=== PATIENT | male | born 1950 | race Caucasian/White ===

== ENCOUNTER → 2016-12-12 | Outpatient (CLI) | payer MEDICARE, BC, OTHER ==
--- NOTE | 2016-12-13 12:43 | SLEEPCENT ---
DATE OF PROCEDURE: 12/12/2016 REQUESTING PROVIDER: Kia Madrigal NP INTERPRETATION: Nocturnal polysomnography was performed due to concern for the obstructive sleep apnea syndrome. 7 hours and 58 minutes of data were reviewed. There were 383 minutes of sleep identified. Sleep latency was short at 4.5 minutes. Rapid eye movement (REM) latency was prolonged at 149 minutes. Sleep architecture was fairly good once established. There were three REM periods appreciated. Overall sleep efficiency was 81.3%. The patient's electrocardiogram (EKG) showed a sinus rhythm with an average heart rate of 50 beats per minute. Electroencephalogram (EEG) showed normal waveforms for awake and sleep. There were 151 respiratory events identified of 10 seconds in duration or greater for an apnea-hypopnea index of 23.7. The events were primarily obstructive, not exclusive to sleep stage nor body posture. Arousals from respiratory events occurred 8.6 times per hour. Oxygen desaturations were seen into the low 80s. The remaining measures of sleep physiology were reasonably normal. IMPRESSION: Moderate obstructive sleep apnea syndrome (G47.33). Apnea-hypopnea index of 23.7. RECOMMENDATIONS: The patient should be encouraged to return to the sleep disorder center for pressure therapy. In the interim, alcohol and sedative avoidance should be practiced and caution exercised during the operation of motor vehicles.
== END ==
LOC: M SLEEP 19:51
PROVIDERS: ATTEND Nurse Practitioner Adult Health
DX: G47.30 Sleep apnea, unspecified (principal); R40.0 Somnolence

== ENCOUNTER → 2017-01-12 | Outpatient (CLI) | payer MEDICARE, BC, OTHER ==
--- NOTE | 2017-01-17 11:56 | SLEEPCENT ---
DATE OF PROCEDURE: 01/12/2017 REQUESTING PROVIDER: Kia Madrigal NP INTERPRETATION: Nocturnal polysomnography was performed for the titration of pressure therapy in this patient with severe obstructive sleep apnea syndrome, apnea-hypopnea index of 23. For testing, the patient was fit with a [employer] Simplus full face mask of medium size, 4 cm of water pressure were applied to the circuit and the lights were extinguished. 8 hours and 6 minutes of data were reviewed. There were 315 minutes of sleep identified. Sleep latency was normal at 8 minutes. Rapid eye movement (REM) latency was delayed at 239 minutes. Sleep architecture improved with optimal pressure therapy. Overall sleep efficiency was reduced to 66% due to a period of wake after 4:30 a.m. The patient's electrocardiogram (EKG) showed a sinus rhythm with a bradycardic rate of 48 beats per minute. Electroencephalogram (EEG) showed normal waveforms for awake and sleep. Respiratory events were fully palliated with a CPAP to a pressure of +8. There was some limb activity noted, but limb movement arousals were few. IMPRESSION: 1. Obstructive sleep apnea syndrome (G47.33). RECOMMENDATIONS: Nightly use of pressure therapy at 8 cm of water.
== END ==
LOC: M SLEEP 20:00
PROVIDERS: ATTEND Nurse Practitioner Adult Health
DX: G47.33 Obstructive sleep apnea (adult) (pediatric) (principal)